=== PATIENT | male | born 1995 | race African-American/Black ===

== ENCOUNTER 2022-07-17 14:48 | Emergency (ER) | payer SELFPAY ==
[2022-07-17 15:07] VITALS: BP 110/70; PULSE 70; RESP 18; TEMP 97.7; BMI 24.5
== END 2022-07-17 16:33 | disposition left against medical advice (07) ==
LOC: JERFT 14:48
DX: M79.652 Pain in left thigh (principal)
CPT/HCPCS: 99282-25